=== PATIENT | female | born 1995 | race Caucasian/White ===

== ENCOUNTER 2018-07-04 16:25 | Emergency (ER) | payer OTHER ==
--- NOTE | 2018-07-04 16:54 | EDPHY ---
H & P Time Seen by Provider: 07/04/18 16:40 HPI/ROS: CHIEF COMPLAINT: Vaginal pain/discharge HISTORY OF PRESENT ILLNESS: Patient is a 22-year-old female presents emergency department with vaginal pain and discharge. The patient's symptoms started roughly 1 week ago. She describes yellow vaginal discharge. She has some slight bloody discharge as well. She reports dysuria. No frequency. No flank pain. She has mild "pelvic floor" pain. She reports subjective fever. She was seen in urgent care yesterday. There they performed a pelvic exam and did swabs. She was diagnosed with a yeast infection and given oral Diflucan. She does not yet feel better and is still having discharge. Patient has control implants. REVIEW OF SYSTEMS: 10 systems were reveiwed and are negative with the exception of the elements mentioned in the history of present illness. Past Medical/Surgical History: Includes pyelonephritis, herpes virus Social history: Patient smokes. Smoking Status: Current every day smoker Physical Exam: Vitals noted GENERAL: Well-appearing, in no acute distress, alert. HEENT: Eyes normal to inspection, normal pharynx, no signs of dehydration. NECK: Normal, supple. RESPIRATORY: Clear to auscultation bilaterally, no rales, rhonchi or wheezing. CVS: Regular rate and rhythm, no rubs, murmurs, or gallops. ABDOMEN: Soft, nontender, nondistended, no organomegaly. Benign BACK: Normal to inspection, no CVA tenderness. SKIN: Normal color, no rash, warm, dry. No pallor. EXTREMITIES: No pedal edema, no calf tenderness, no Homans sign or cords, no joint swelling. NEURO/PSYCH: Alert and oriented, normal mood and affect, normal motor sensory exam. Constitutional: Initial Vital Signs Temperature (C) 37.1 C 07/04/18 16:32 Heart Rate 68 07/04/18 16:32 Respiratory Rate 16 07/04/18 16:32 Blood Pressure 130/71 H 07/04/18 16:32 O2 Sat (%) 96 07/04/18 16:32 O2 Delivery Mode Room Air Allergies/Adverse Reactions: No Known Allergies Allergy (Verified 12/08/14 08:05) Home Medications: Medication Instructions Recorded Flexeril 10 MG (RX) 11/03/14 Acyclovir 11/18/14 Bisacodyl [Dulcolax] 10 mg RC DAILY #3 supp.rect 11/18/14 Naproxen 11/18/14 Acyclovir 05/29/17 Acyclovir 800 mg PO BID 5 Days tablet 05/29/17 Seroquel 05/29/17 Sulfamethox/Tmp 800/160 mg 1 tab PO BID #14 tab 05/29/17 [Bactrim Ds] Wellbutrin Sr 05/29/17 Medical Decision Making ED Course/Re-evaluation: In the emergency department discussed possible etiologies with the patient. I answered all her questions. Of note, patient states she is not worsening since yesterday but she has not drastically improving. Urine sample was sent to the lab. To obtain results from [facility] yesterday. is negative. UA is negative. GC and chlamydia are pending. Was accompanied by nurse Hope CAMPOS : Patient has a normal external pelvic exam. No lesions. Speculum exam is normal. Normal appearing cervix. No lesions, white discharge. Bimanual exam: Normal, no tenderness to palpation bilaterally, normal ovaries bilaterally, normal uterus. The patient was diagnosed with fungal infection. She was treated with a single dose of Diflucan yesterday. I do not feel she needs further treatment with Diflucan. She was given follow-up with gynecology. She will called in if her culture results are abnormal. Differential Diagnosis: My differential includes but is not limited to candidiasis, bacterial vaginitis , gonorrhea, chlamydia, , ectopic , urinary tract infection, pyelonephritis - Data Points Laboratory Results: 07/04/18 07/04/18 07/04/18 16:45 16:45 16:45 Urine Color PALE YELLOW Urine Appearance CLEAR Urine pH 7.0 (5.0-7.5) Ur Specific Nelson 1.004 (1.002-1.030) Urine Protein NEGATIVE (NEGATIVE) Urine Ketones NEGATIVE (NEGATIVE) Urine Blood NEGATIVE (NEGATIVE) Urine Nitrate NEGATIVE (NEGATIVE) Urine Bilirubin NEGATIVE (NEGATIVE) Urine Urobilinogen NEGATIVE EU EU (0.2-1.0) Ur Leukocyte Esterase NEGATIVE (NEGATIVE) Urine RBC 1-3 /hpf /hpf (0-3) Urine WBC 1-3 /hpf /hpf (0-3) Ur Epithelial Cells TRACE /lpf /lpf (NONE-1+) Urine Glucose NEGATIVE (NEGATIVE) Urine Test NEGATIVE C.trachomatis RNA (TMA) Pending N.gonorrhoeae RNA (TMA) Pending Medications Given: Discontinued Medications Ibuprofen (Motrin) 600 mg PO EDNOW ONE Stop: 07/04/18 18:43 Last Admin: 07/04/18 18:44 Dose: 600 mg Departure - Departure Disposition: Home, Routine, Self-Care Clinical Impression: Vaginal discharge Abdominal pain Qualifiers: Abdominal location: lower abdomen, unspecified Qualified Code(s): R10.30 - Lower abdominal pain, unspecified Condition: Good Instructions: Abdominal Pain (ED), Vaginal Discharge (ED), Yeast Infection (ED) Additional Instructions: Return with increasing pain, fever, discharge or any other concerns. You been treated with Diflucan. This single dose treats a yeast infection. You have cultures pending. Call gynecology tomorrow to make the next available appointment. Referrals: Quincy Morgan MD [Medical Doctor] - 5-7 days, call for appt.
[2018-07-04 18:40] VITALS: BP 129/85
[2018-07-04] MEDS ORDERED: IBUPROFEN 600 MG TAB PO ONE (18:42)
[2018-07-04] MEDS ORDERED: HYDROCOD/APAP 5/325 PREPACK#6 BTL TAKEHOME ONE (19:44)
[2018-07-05 11:31] LABS: GC AMPLIFICATION GENPROBE NEGATIVE (NEGATIVE)
[2018-07-05 11:36] LABS: GC AMPLIFICATION GENPROBE NEGATIVE (NEGATIVE)
== END 2018-07-04 20:07 | disposition home or self-care (01) ==
DX: B37.9 Candidiasis, unspecified (principal); R10.30 Lower abdominal pain, unspecified